=== PATIENT | female | born 1970 | race Caucasian/White ===

== ENCOUNTER 2021-08-05 11:36 | Observation (INO) ==
[2021-08-05] MEDS ORDERED: MORPHINE 2 MG/1 ML SYRINGE IV STA (12:18)
[2021-08-05] MEDS ORDERED: ONDANSETRON 4 MG/2 ML VIAL IV STA ×2 (12:18→15:58)
[2021-08-05] MEDS ORDERED: SODIUM CHLORIDE 0.9% 1,000 ML IV STA (12:18)
[2021-08-05 13:39] LABS: Basophils % 0.3 % (0.0-0.8); Hematocrit 39.8 VOL% (35.7-47.0); Hemoglobin 13.9 GM/DL (12.0-16.0); Immature Granulocytes % 0.5 %; Immature Granulocytes Absolute 0.07 #; Lymphocytes # 0.6 10*3/uL (1.4-4.0); Lymphocytes % 4.1 % (21.3-54.2); Mean Corpuscular HGB Conc 34.9 GM/DL (32-36); Mean Corpuscular Volume 90.5 FL (87-102); Mean Platelet Volume 9.8 FL (9.6-12.0); Monocytes % 7.9 % (1.7-12.7); Neutrophils % 87.2 % (38.7-73.9); Platelet Count 215 T/CUMM (130-400); Red Cell Distribution Width 12.3 % (9.3-17.3); White Blood Count 14.2 T/CUMM (4-12)
[2021-08-05 13:56] LABS: Bilirubin,Total 1.8 MG/DL (0.20-1.00); Calcium 8.9 MG/DL (8.5-10.1); Osmolality,Calculated 277.5 MOS/KG (273-304); Potassium 3.4 MMOL/L (3.5-5.1); Total Protein 7.2 G/DL (6.4-8.2)
[2021-08-05 14:49] LABS: Eosinophils 1 % (0-10); Lymphocytes 5 % (20-55); Platelet Estimate Adequate; Segmented Neutrophils 84 % (50-85); Total Cells Counted 100
[2021-08-05 14:50] LABS: Bilirubin,Urine Negative (Negative); Blood, Urine Negative (Negative); Glucose,Urine (UA) Negative (Negative); Ketones,Urine 80 mg/dL (Negative); Mucus,Urine Occasional /LPF (Occasional); Nitrite,Urine Negative (Negative); Protein,Urine Negative; RBC,Urine 1 /HPF (0-4); Squamous Epithelial Cell,Urine Occasional /HPF (0-10); Urine Appearance CLEAR (Clear); Urine Color Yellow (Yellow); Urine Specific Gravity 1.056 (1.001-1.035); Urine Urobilinogen < 2.0 EU/DL (0.2-1.0)
[2021-08-05] MEDS ORDERED: KETOROLAC 30 MG/1 ML VIAL IV STA (15:58)
[2021-08-05] MEDS ORDERED: PANTOPRAZOLE 40 MG VIAL IV STA (16:10)
[2021-08-05] MEDS ORDERED: SCOPOLAMINE 1.5 MG PATCH TRANSDERM ONE (16:11)
[2021-08-05] MEDS ORDERED: ROCURONIUM 50 MG/5 ML VIAL IV ONE (16:12)
[2021-08-05] MEDS ORDERED: LIDOCAINE 2% 5 ML VIAL ONE (16:12)
[2021-08-05] MEDS ORDERED: propofoL 200 MG/20 ML VIAL IV ONE (16:12)
[2021-08-05] MEDS ORDERED: MIDAZOLAM 2 MG/2 ML VIAL ONE (16:13)
[2021-08-05] MEDS ORDERED: CLINDAMYCIN INJ 900 MG/50 ML PREMIX IV ONE (16:13)
[2021-08-05] MEDS ORDERED: fentaNYL 100 MCG/2 ML VIAL ONE (16:14)
[2021-08-05] MEDS ORDERED: SUCCINYLCHOLINE 200 MG/10 ML VIAL ONE (16:14)
[2021-08-05] MEDS ORDERED: BUPIVACAINE MPF 0.25% 30 ML VIAL ONE (16:29)
[2021-08-05] MEDS ORDERED: LIDOCAINE 1%/EPI INJ 20 ML VIAL ONE (16:29)
[2021-08-05] MEDS ORDERED: TISSUE ADHESIVE 1 EACH APPLICATOR TOP ONE (16:29)
[2021-08-05] MEDS ORDERED: DEXAMETHASONE 4 MG/1 ML VIAL ONE ×2 (16:46)
[2021-08-05] MEDS ORDERED: KETOROLAC 30 MG/1 ML VIAL ONE (16:46)
[2021-08-05] MEDS ORDERED: ONDANSETRON 4 MG/2 ML VIAL ONE (16:46)
[2021-08-05] MEDS ORDERED: SEVOFLURANE 1 UNIT/15 MINUTE INH ONE (16:47)
[2021-08-05] MEDS ORDERED: NEOSTIGMINE 10 MG/10 ML VIAL ONE (17:37)
[2021-08-05] MEDS ORDERED: GLYCOPYRROLATE 0.4 MG/2 ML VIAL ONE (17:37)
[2021-08-05] MEDS ORDERED: PROMETHAZINE 25 MG/1 ML VIAL IM PRN (18:53)
[2021-08-05] MEDS ORDERED: HYDROmorphone 2 MG/1 ML VIAL IV PRN (18:53)
[2021-08-05] MEDS ORDERED: ONDANSETRON 4 MG/2 ML VIAL IV PRN (18:53)
[2021-08-05] MEDS: KETOROLAC 15 MG/1 ML VIAL IV SCH (20:48)
[2021-08-05] MEDS: LACTATED RINGERS 1,000 ML IV SCH (20:48)
[2021-08-06] MEDS: KETOROLAC 15 MG/1 ML VIAL IV SCH ×2 (03:16→09:33)
[2021-08-06] MEDS: LACTATED RINGERS 1,000 ML IV SCH (03:16)
[2021-08-06] MEDS ORDERED: PROMETHAZINE 25 MG TABLET PO PRN (06:37)
[2021-08-06] MEDS ORDERED: diphenhydrAMINE CAP 50 MG CAPSULE PO PRN (06:37)
[2021-08-06] MEDS ORDERED: CYANOCOBALAMIN 1000 MCG/1 ML VIAL IM SCH (07:00)
[2021-08-06 07:34] VITALS: BP 95/53
[2021-08-06] MEDS ORDERED: ENOXAPARIN 40 MG/0.4 ML SYRINGE SUBCUT SCH (12:00)
== END 2021-08-06 10:10 | disposition home or self-care (01) ==
LOC: N.EDINP 11:36 → N.ED 11:36 → N.4E 17:18
PROVIDERS: ADMIT Surgery; ATTEND Surgery